=== PATIENT | female | born 1995 | race Two or more races ===

== ENCOUNTER 2025-10-11 02:20 | Emergency (ER) | payer OTHER ==
[~2025-10-11] VITALS: Ht 157.5 cm; Wt 72.6 kg
[2025-10-11 02:20] VITALS: BP 103/64; PULSE 65; RESP 16; TEMP 97.5; O2SAT 96
== END 2025-10-11 03:27 | disposition left against medical advice (07) ==
LOC: ER 02:20
DX: R10.84 Generalized abdominal pain (principal); Z53.21 Procedure and treatment not carried out due to patient leaving prior to being seen by health care provider